=== PATIENT | male | born 1995 | race Caucasian/White ===

== ENCOUNTER 2020-10-06 12:51 | Emergency (ER) | payer MEDICAID ==
[~2020-10-06] VITALS: Ht 185.4 cm; Wt 79.5 kg
[2020-10-06 14:42] VITALS: BP 135/85
== END 2020-10-06 14:43 | disposition home or self-care (01) ==
LOC: EMS 12:59
DX: K40.90 Unilateral inguinal hernia, without obstruction or gangrene, not specified as recurrent (principal); M54.5 Low back pain; F17.210 Nicotine dependence, cigarettes, uncomplicated; F12.90 Cannabis use, unspecified, uncomplicated
CPT/HCPCS: 99283